=== PATIENT | male | born 1965 | race African-American/Black ===

== ENCOUNTER 2017-08-22 23:28 | Emergency (ER) | payer BC ==
--- NOTE | 2017-08-22 23:48 | PDOC ---
History of Present Illness - General Chief Complaint: Shortness of Breath Stated Complaint: SOB TODAY Time Seen by Provider: 08/22/17 23:32 - History of Present Illness Initial Comments: This 52-year-old man with no significant past medical history presents with 2 day history of upper respiratory symptoms and one-day history of shortness of breath/productive cough. Yesterday, the patient had throat irritation and nasal congestion. Today, he developed cough productive of whitish sputum and shortness of breath. Denies fever/chills. He has not had any wheezing noted. No history of asthma or other chronic respiratory illnesses. The patient is a nonsmoker. No recent travel. No known sick contacts. Past History - Past Medical History Allergies/Adverse Reactions: Allergies Allergy/AdvReac Type Severity Reaction Status Date / Time aspirin Allergy Verified 08/22/17 23:32 Home Medications: Ambulatory Orders Azithromycin [Zithromax 250mg Tablets -] 250 mg PO DAILY #4 tablet 08/23/17 Benzonatate [Tessalon Pearls -] 200 mg PO TID #20 cap 08/23/17 Review of Systems - Review of Systems Able to Perform ROS?: Yes Comments:: 12 point review of systems is negative except for what is noted in the history of present illness *Physical Exam - Physical Exam Comments: GENERAL: Adult male, alert and oriented 3, speaking in full sentences, in no respiratory distress HEAD: Normal with no signs of trauma. EYES: PERRLA, EOMI, sclera anicteric, conjunctiva clear. ENT: Ears normal, nares patent, oropharynx clear without exudates. Moist mucous membranes. NECK: Normal range of motion, supple without lymphadenopathy, JVD, or masses. LUNGS: Breath sounds equal, clear to auscultation bilaterally. No wheezes, and no crackles. HEART:Regular rate and rhythm, normal S1 and S2 without murmur, rub or gallop. ABDOMEN:.normal bowel sounds No guarding,tenderness or rebound.No masses No distention. EXTREMITIES: Normal range of motion, no edema. No clubbing or cyanosis. No erythema, or tenderness. NEUROLOGICAL: Cranial nerves II through XII grossly intact. Normal speech. No focal neurological deficits. MUSCULOSKELETAL: Back non-tender to palpation, no CVA tenderness SKIN: Warm, Dry, normal turgor, no rashes or lesions noted. Progress Note - Progress Note Progress Note: Chest x-ray, PA and lateral, show no evidence of acute disease. Results discussed with the patient. Clinical presentation most consistent with acute bronchitis. Patient will be started on azithromycin (Z-Familia) with first dose of 500 mg given here in the emergency room. Prescription for remainder of the course (250 mg daily for 4 days) will be transmitted to his pharmacy. Prescription for Tessalon Perles 200 mg up to 3 times a day as needed for cough will be transmitted also to the pharmacy. Patient should rest, drink plenty of fluids and not work tomorrow. If he has persistent severe symptoms or develops worsening shortness of breath/wheezing, he should return here or see his physician. *DC/Admit/Observation/Transfer Diagnosis at time of Disposition: Acute bronchitis Qualifiers: Bronchitis organism: unspecified organism Qualified Code(s): J20.9 - Acute bronchitis, unspecified - Discharge Dispostion Disposition: HOME Condition at time of disposition: Stable - Prescriptions Prescriptions: Azithromycin [Zithromax 250mg Tablets -] 250 mg PO DAILY #4 tablet Benzonatate [Tessalon Pearls -] 200 mg PO TID #20 cap - Referrals Referrals: Quang Betancourt MD [Primary Care Provider] - - Patient Instructions Printed Discharge Instructions: Acute Bronchitis Additional Instructions: Rest; drink plenty of fluids Azithromycin 250 mg once a day for the next 4 days Tessalon Perles up to 3 times a day as needed for cough Return to ER if you have severe shortness of breath/wheezing/high fever Follow-up with your general medical doctor within the next 5 days No work tomorrow - Post Discharge Activity Forms/Work/School Notes: Back to Work
[2017-08-23] MEDS ORDERED: AZITHROMYCIN 250 MG TABLET PO ONE (00:40)
[2017-08-23] MEDS ORDERED: AZITHROMYCIN 250 MG TABLET ONE (00:40)
== END 2017-08-23 00:50 | disposition home or self-care (01) ==
LOC: FER 23:28
DX: J20.9 Acute bronchitis, unspecified (principal)
CPT/HCPCS: 71046-TC-FY; 99281-25